=== PATIENT | male | born 1945 | race African-American/Black ===

== ENCOUNTER 2017-04-26 06:53 | Day surgery (SDC) | payer MEDICARE ==
[~2017-04-26] VITALS: Ht 188 cm; Wt 111.1 kg
--- NOTE | ~2017-04-26 | OP ---
PATIENT NAME: Anna MORRIS MEDICAL RECORD: [id number] :49 LOCATION:[facility] ADMISSION DATE: SURGEON: VIRY POOLE MD DATE OF OPERATION: 04/26/2017 REFERRING PHYSICIAN: Nelida Huang MD, of [facility] [place] SOCIAL MEDIA SENIOR ASSOCIATE: Cuco England MD PREOPERATIVE DIAGNOSES: End-stage renal disease, dependence on hemodialysis, diabetes, hypertension, and thrombosed left forearm radiocephalic arteriovenous fistula. POSTOPERATIVE DIAGNOSES: End-stage renal disease, dependence on hemodialysis, diabetes, hypertension, and thrombosed left forearm radiocephalic arteriovenous fistula. OPERATIONS PERFORMED: Intraoperative ultrasound vein mapping followed by implantation of a left rainbow configuration brachial artery to proximal basilic vein arteriovenous graft utilizing a standard wall thickness 6-mm diameter Delmont Propaten PTFE graft. Insertion of a tunneled HemoSplit dialysis catheter via the left internal jugular vein utilizing ultrasound guidance as well as fluoroscopy. SURGEON: Viry Poole MD ANESTHESIA: General with LMA per ELECTROTYPE MOLDER PREOPERATIVE NOTE: Mr. Morris is a very nice 72-year-old -[place] male from [facility] who has end-stage renal disease, due likely to his diabetes and hypertension. He has had difficulties with access since initiating hemodialysis in June of 2015. He has had a fistula in the right arm fail and recently had a left radiocephalic fistula, which was slow to mature but did eventually mature and become satisfactory access. I saw the patient at [facility] last December and dilated a mid fistula stenosis and removed a right internal jugular tunneled dialysis catheter at that time. The graft was used to dialyze him successfully, most recently on Saturday of this week. When he presented for dialysis yesterday, on , the fistula was thrombosed. He was brought to the hospital today as an outpatient for a tunneled dialysis catheter, and if possible, a declot salvage of his fistula or implantation of the graft. DESCRIPTION OF PROCEDURE: With the patient under general anesthesia with LMA, he was prepped and draped in sterile manner. Topical nitroglycerin was applied to the skin of the arm and the forearm. A Liu drain was used as a proximal venous tourniquet. I examined him with ultrasound and found that the radiocephalic fistula of course was indeed thrombosed. On ultrasound, it appeared to be essentially obliterated in the upper third of the forearm, near the antecubital space. I also saw that there was very limited runoff other than via the brachial veins in the forearm. I thought it probably is wiser to go ahead and provide an entirely new access than to try further to restore flow in this fistula that has been problematic already. I then elected to implant a PTFE graft. The cephalic vein in the upper arm was poor or very small. The brachial artery looked good and the basilic vein also was small. The axillary vein and proximal basilic vein were of good caliber. I made a longitudinal incision in the upper arm and exposed the basilic vein just proximal to the OPERATIVE REPORT [id number] Anna MORRIS axilla. I made another incision across the antecubital space and exposed the brachial artery just above the level of the antecubital space. The vessels were controlled with Silastic loops and treated with topical papaverine. I chose a 6-mm diameter standard wall thickness Delmont Propaten PTFE graft and beveled one end and then occluded the vein, opened it for a distance of about 10 mm, and flushed the vein proximally and distally with heparinized saline. I then anastomosed the end of graft to side of vein with continuous running 7-0 Prolene. The suture line was treated with Evicel sealant, and after satisfactory time had elapsed, the graft was flushed with heparinized saline and the suture line was found to be watertight. The occluding loops on the vein were released and the graft clamped and the suture line was hemostatic. I then placed the graft in immediately subcutaneous or very shallow subcutaneous tunnel, which arched in a rainbow configuration and then came back to the brachial artery wound, where it was shortened and beveled and anastomosed end-to-side to the artery with running 7-0 Prolene after the artery was opened and flushed proximally and distally with heparinized saline. That suture line too was treated with Evicel prior to opening the fistula and release of occluding clamps and loops on the vessels. The arterial suture line was satisfactory and hemostatic. Excellent flow developed immediately within the new AV graft and there was good pulsatile continuous flow in the brachial artery and in the brachial artery proximal and also distal to the arterial anastomosis. Doppler examination of the radial artery closer to the wrist demonstrated pulsatile flow signal with and without occlusion of the new AV graft. There was no evidence of distal ischemia and I felt that this would be a satisfactory access. The patient's wounds were irrigated with Ancef-gentamicin solution and infiltrated and irrigated with 0.25% Marcaine with epinephrine. The wounds were closed with interrupted inverted 3-0 Vicryl and then running intracuticular 4-0 Monocryl and Dermabond glue. They were dressed with Maxorb Ag, Tegaderm, and Cavilon skin prep. The patient's neck was then prepped and draped in sterile manner. I examined the right side first with ultrasound and found that the internal jugular vein was gone from prior catheter usage. I noted that the left internal jugular vein was of large caliber. I made a small incision at the base of the neck on the left, and through that, using ultrasound guidance, I placed a needle and guidewire into the internal jugular vein with appropriate documentation. The wire was advanced into the right atrium under fluoro, and after that, dilators were passed and lastly a dilator peel-away sheath. I chose first a 190 but switched to a 23-cm HemoSplit catheter and that was inserted through a separate skin incision beneath the clavicle and pulled through a subcutaneous tunnel up to the cervical wound. It was inserted and manipulated with an Amplatz guidewire actually down into the superior vena cava and the right atrium. Eventually, a very good geometric configuration was achieved. Both lumens functioned well. They elgin blood easily and were flushed then easily with saline. They were then heparin locked, clamped, and capped. The catheter was sutured to the skin near the entry site with 2-0 Prolene. The cervical incision was closed with interrupted inverted 3-0 Vicryl and Dermabond glue; and dressed with Maxorb Ag and Tegaderm with Cavilon skin prep. The catheter entry site also was snugged up with a single intracuticular 3-0 Vicryl suture. That incision was also sealed around the catheter with glue. A chlorhexidine patch was applied over that and then a standard central venous catheter. Dressing was applied. The patient at that point was awakened and taken to the recovery room in stable condition. Blood loss throughout the operation was less than 10 cc. None was replaced intraoperatively. All sponges, instruments, and needles were accounted for. No drain was used. No surgical specimen was submitted for OPERATIVE REPORT [id number] ALEXANDRA,E.L. histopathology. PLAN: The patient can, I think, go home this afternoon and resume his usual dialysis schedule. Continue his home medications as he had been on preop. I will make an appointment for him to come back to see me in my office in approximately 2 weeks and is very likely, after that office visit, that we can start accessing the new AV graft. TRANSINT:[id number] Voice Confirmation ID: [id number] DOCUMENT ID: [id number] VIRY POOLE MD CC: CUCO ENGLAND MD and NELIDA HUANG III MD [id number] DICTATION DATE: 04/26/17 131 HEALTH CARE ATTORNEY: 04/26/17 1705 [facility] 04/26/17 [facility] [address] [place] [address]
[2017-04-26 08:06] LABS: BASOPHILS 0.1 % (0-2); HEMATOCRIT 36.6 % (42.0-54.0); HEMOGLOBIN 12.2 g/dL (13.5-17.5); IMMATURE GRANULOCYTES 0.3 % (0-5); LYMPHOCYTES 11.3 % (15-50); MCH 30.6 pg (26.0-34.0); MCHC 33.3 g/dL (31.0-37.0); MCV 91.7 fL (80.0-100.0); MEAN PLATELET VOLUME 9.4 fL (7.4-10.4); MONOCYTES 8.6 % (2-11); NEUTROPHILS 77.7 % (40-80); PLATELET COUNT 162 10x3/uL (130-400); RBC 3.99 10x6/uL (4.20-6.10); RDW 14.2 % (11.5-14.5); WBC 7.1 10x3/uL (4.8-10.8)
[2017-04-26 08:14] LABS: INR 1.09 (0.85-1.17)
[2017-04-26 08:18] LABS: ANION GAP 20.8 mmol/L (8-16); CALCIUM 8.7 mg/dL (8.5-10.1); CARBON DIOXIDE 22.3 mmol/L (21.0-32.0); CREATININE - SERUM 16.5 mg/dL (0.6-1.3); POTASSIUM - SERUM 5.1 mmol/L (3.5-5.1)
[2017-04-26 08:19] LABS: APTT 32.3 SECONDS (22.8-39.4)
[2017-04-26] MEDS ORDERED: PRAVACHOL20 MG PO (08:32)
[2017-04-26] MEDS ORDERED: LEVOXYL75 MCG PO (08:33)
[2017-04-26] MEDS ORDERED: PROTONIX40 MG PO (08:33)
[2017-04-26] MEDS ORDERED: RENVELA800 MG PO (08:34)
[2017-04-26] MEDS ORDERED: [UNRECOGNIZED DRUG - OTHER] (08:34)
[2017-04-26] MEDS ORDERED: PHOSLO667 MG PO (08:35)
[2017-04-26 08:44] VITALS: Ht 188 cm; Wt 111.1 kg
[2017-04-26] MEDS ORDERED: ULTRAM50 MG PO (12:49)
--- NOTE | 2017-04-26 15:31 | NUR ---
1500--IV DC'D, PT DRESSING AT THIS TIME. DO WONG 0185--DISCHARGE INSTRUCTIONS GIVEN, PT VERBALIZES UNDERSTANDING. DO WONG
--- NOTE | 2017-04-26 16:20 | NUR ---
1600--REPORT OF POST OP CXR GIVEN TO RITO AGUSTIN TO DISCHARGE. PT OFF UNIT VIA WC. DO WONG
== END 2017-04-26 16:00 | disposition home or self-care (01) ==
LOC: D.OPS 06:53
PROVIDERS: Surgery
DX: N18.6 End stage renal disease (principal); F17.200 Nicotine dependence, unspecified, uncomplicated; E03.9 Hypothyroidism, unspecified; Z01.812 Encounter for preprocedural laboratory examination; E11.22 Type 2 diabetes mellitus with diabetic chronic kidney disease; I10 Essential (primary) hypertension; Z99.2 Dependence on renal dialysis

== ENCOUNTER 2018-03-28 06:24 | Day surgery (SDC) | payer MEDICARE ==
[~2018-03-28] VITALS: Ht 188 cm; Wt 111.1 kg
--- NOTE | ~2018-03-28 | OP ---
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 OPERATION PERFORMED: Fistulogram and open thrombectomy, left arm AV graft. SURGEON: Viry Poole MD ANESTHESIA: General with LMA per EQUIPMENT DRIVER. PREOPERATIVE NOTE: Mr. Morris is a 72-year-old gentleman from [facility]. He is on chronic hemodialysis. His raw shellfish preparer is Dr. Avery in [place]. Mr. Morris has a left upper extremity brachial axillary PTFE AV graft, which is thrombosed. He has a history of recurring thrombosis of this graft and despite being on Eliquis and aspirin. When he had his last declot and fistulogram at [facility], Dr. Fox noted that there were numerous overlapping stents in the axilla and axillary outflow of the graft and that the graft was "worn out" and he suggested that Mr. Morris would need a new access should his graft continue to thrombose. His graft clotted about 2 weeks after that and Mr. Morris was back to [facility] where I believe I inserted a TDC in the left internal jugular vein. Subsequently, he was scheduled for outpatient surgery with my thought being to try to save the left upper extremity for access with a new jump graft from his old arterial anastomosis to the stented portion of his axillary vein. Under general anesthetic in supine position, the patient was prepped and draped in sterile manner. I accessed the graft in the arm just above the antecubital space with ultrasound guidance and micropuncture technique. I placed a 6-Cook Islander introducer and all the time, had great difficulty passing needles and guidewires into the graft admitting very very firm. I was able to advance a Glidewire within a straight glide catheter only to the most distal stent. I tried an Amplatz wire as well as a Roadrunner wire and was equally unsuccessful. 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 I did make an incision near the arterial anastomosis and exposed the graft and opened it and tried to pass a Trung catheter in order to remove some of this organized thrombus, but was unable to pass the Trung more than a few centimeters, not exceeding the length of the 6-Cook Islander port divide removed. The wound was then closed with interrupted 3-0 Vicryl and running intracuticular Monocryl and Dermabond glue. It was dressed with Maxorb Ag, Tegaderm, and Cavilon skin prep. PLAN: The patient will have a right upper extremity venous Mapping Ultrasound done today and will go home and I will have him come back to the hospital when OPERATIVE REPORT [id number] Jena MORRIS he is able to give informed consent and we are prepared for implantation of a HeRO graft in the left upper extremity. Of course, he could have a right upper extremity AV graft of his venogram in the case of no venous obstruction. In the case of a HeRo graft, I plan to remove the present left internal jugular TDC and use that tract for the HeRO outflow. I have to use an immediate use PTFE graft such as the Acuseal so that he will not require a bridging catheter after that. Blood loss during the procedure today was insignificant and unreplaced and all sponges, instruments, and needles were accounted for. No drain was used and no surgical specimen was submitted for histopathology. TRANSINT:[id number] Voice Confirmation ID: [id number] DOCUMENT ID: [id number] VIRY POOLE MD at 1054 CC: FRANCIS ENGLAND and MIREYA FOX MD [id number] DICTATION DATE: 03/28/18 1045 COMMERCIAL REAL ESTATE MANAGER: 03/28/18 1102 [facility] 03/28/18 [facility] [address] [place] [id number]
[~2018-03-28 06:24] MED LIST: LEVOXYL75 MCG PO; PHOSLO667 MG PO; PRAVACHOL20 MG PO; PROTONIX40 MG PO; RENVELA800 MG PO; ULTRAM50 MG PO; [UNRECOGNIZED DRUG - OTHER]
[2018-03-28 06:59] LABS: BASOPHILS 0.6 % (0-2); EOSINOPHILS 1.3 % (0-7); HEMATOCRIT 38.6 % (42.0-54.0); HEMOGLOBIN 13.1 g/dL (13.5-17.5); IMMATURE GRANULOCYTES 0.2 % (0-5); LYMPHOCYTES 19.2 % (15-50); MCH 31.5 pg (26.0-34.0); MCHC 33.9 g/dL (31.0-37.0); MCV 92.8 fL (80.0-100.0); MEAN PLATELET VOLUME 9.6 fL (7.4-10.4); MONOCYTES 14.5 % (2-11); NEUTROPHILS 64.2 % (40-80); PLATELET COUNT 191 10x3/uL (130-400); RBC 4.16 10x6/uL (4.20-6.10); RDW 14.3 % (11.5-14.5); WBC 5.4 10x3/uL (4.8-10.8)
[2018-03-28 07:24] LABS: ANION GAP 16.4 mmol/L (8-16); CARBON DIOXIDE 20.5 mmol/L (21.0-32.0); CREATININE - SERUM 5.9 mg/dL (0.6-1.3); POTASSIUM - SERUM 3.9 mmol/L (3.5-5.1)
[2018-03-28 07:36] LABS: APTT 30.8 SECONDS (22.8-39.4); INR 1.13 (0.85-1.17); PROTIME 14.1 SECONDS (11.6-15.0)
[2018-03-28] MEDS ORDERED: ELIQUIS5 MG PO (08:03)
[2018-03-28 08:05] VITALS: Ht 188 cm; Wt 111.1 kg
== END 2018-03-28 13:30 | disposition home or self-care (01) ==
LOC: D.OPS 06:24
PROVIDERS: Surgery
DX: T82.868A Thrombosis due to vascular prosthetic devices, implants and grafts, initial encounter (principal); E11.22 Type 2 diabetes mellitus with diabetic chronic kidney disease; I12.0 Hypertensive chronic kidney disease with stage 5 chronic kidney disease or end stage renal disease; N18.6 End stage renal disease; Z99.2 Dependence on renal dialysis; D68.59 Other primary thrombophilia; Z01.812 Encounter for preprocedural laboratory examination

== ENCOUNTER 2018-06-20 07:27 | Inpatient (IN) | payer MEDICARE ==
[~2018-06-20] VITALS: Ht 167.6 cm; Wt 104.3 kg
--- NOTE | ~2018-06-20 | MORECARE ---
CASE MANAGEMENT DISCHARGE SUMMARY PATIENT: Jena MORRIS UNIT: [id number] ADM DATE: 06/20/18 AGE: 73 : 47 SEX: M ROOM/BED: D.2101 AUTHOR: ALYSE POWERS PHYSICIAN: REFERRING PHYSICIAN: FRACNIS ENGLAND MD DATE OF SERVICE: 06/23/18 Discharge Plan Patient Name: Jena MORRIS [facility] [facility] 1945 Planned Disposition: Home Anticipated Discharge Date: 06/21/18 Discharge Date: 06/21/2018 Expected LOS: 1 Initial Reviewer: [email or web address] Initial Review Date: 06/23/2018 Generated: 06/23/18 9:26 am Patient Name: Jena MORRIS Page [id number] at 0826 All edits/amendments must be made on the electronic document DICTATION DATE: 06/23/18825 DELIVERY ASSOCIATE: KEYLA 06/23/18825 RPT#: [id number] DC DATE:06/21/18 STATUS: DIS IN [facility] [address] [place] [address] END OF REPORT
--- NOTE | ~2018-06-20 | OP ---
PATIENT NAME: Jena ORNELAS MEDICAL RECORD: [id number] :49 LOCATION:D. 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 OPERATIONS: Removal of the left internal jugular tunneled dialysis catheter with performance of a superior vena cavogram and balloon angioplasty of a thoracic central vein stenosis at the junction of the brachiocephalic vein and superior vena cava. Implantation of HeRO AV graft with initiation from the brachial artery at mid humeral level to the right atrium via the left internal jugular vein. The PTFE portion of the graft was Acuseal. PREOPERATIVE NOTE: Mr. 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 He is to have today that tunneled dialysis catheter removed and a HeRO AV graft implanted in the left upper extremity with the outflow device placed via the left internal jugular vein into the right atrium. DESCRIPTION OF PROCEDURE: Under general endotracheal anesthesia, the patient was prepped and draped in a sterile manner. The TDC on the left was dissected from the surrounding tissues and removed over a guidewire and an introducer port was inserted and a superior vena cavogram performed, which confirmed a severe stenosis of the left brachiocephalic vein at the junction with the superior vena cava. This was subsequently dilated with an 8-mm diameter angioplasty balloon and followup angiography revealed the stenosis to be fairly elastic. I was then able to advance a wire and catheter and then do an exchange leaving an Amplatz wire in place from the left internal jugular vein into the inferior vena cava. I passed an outflow device then and positioned its tip in the right atrium. The device was aspirated and then flushed with heparinized saline and clamped. I made an infraclavicular incision and pulled the outflow device through a subcutaneous tunnel to that incision. Under fluoroscopy, we were careful to leave the tip of the catheter in the right atrium undisplaced. I then made an incision on the medial aspect of the arm and exposed the mid humeral level brachial artery and controlled with Silastic loops. It was noted to be moderately calcified, though seemed to be of good caliber with a substantial lumen. The artery was occluded. It was opened and flushed proximally and distally with heparinized saline after which I chose an Acuseal 6-mm PTFE graft and bevelled it and anastomosed it end-to-side to the brachial artery with running 6-0 Prolene. The anastomosis was sealed with BioGlue. The graft was then placed in an U-shaped tunnel using one counter incision and it was brought back up to the infraclavicular incision in the deltopectoral groove. It was shortened and then connected to the HeRO with the special adaptor connector. Again, fluoroscopy confirmed good position of the outflow device in the right atrium. With removal of clamps, excellent flow was established within the new HeRO graft. The wounds were irrigated with saline, infiltrated with 0.25% Marcaine and closed with interrupted inverted 3-0 Vicryl. The connector at the outflow device PTFE junction was sutured to the pectoral fascia with two 2-0 OPERATIVE REPORT [id number] Jena ORNELAS Prolene sutures. Skin was closed with running intracuticular Monocryl and Dermabond glue. Dressings of Maxorb Ag, Tegaderm, and Cavilon skin prep were applied. The tip of the TDC was sent to the laboratory for culture. No other specimens were submitted for histopathology. This man came to the hospital today. I am going to keep him and admit him to inpatient status. I believe that we should wait 24-48 hours before accessing the Acuseal graft and then we should be taking care to see that Acuseal protocol was followed both here in the hospital and after he is discharged. Ideally, I would like to see that he is dialyzed twice, perhaps both on Saturday and Saturday and then be discharged on Saturday or perhaps on Saturday dialysis before going home that same day. He will continue his same medications and diet and dialysis schedule after that when he gets home. I will follow up with him in my office. Blood loss during the operation was 100 cc, none replaced. All sponges, instruments, and needles were accounted for. No drain was used. The surgical specimen consisted only of the tip of the TDC, which was sent for culture. TRANSINT:[id number] Voice Confirmation ID: [id number] DOCUMENT ID: [id number] VIRY POOLE MD at 1657 CC: [id number] DICTATION DATE: 07/08/181106 PIPEFITTER HELPER: 07/08/18 1134 DIS IN 06/21/18 [facility] [address] [id number]
[~2018-06-20 07:27] MED LIST changes: +ELIQUIS5 MG PO
[2018-06-20 08:06] LABS: BASOPHILS 0.3 % (0-2); EOSINOPHILS 1.1 % (0-7); HEMATOCRIT 38.2 % (42.0-54.0); HEMOGLOBIN 12.8 g/dL (13.5-17.5); IMMATURE GRANULOCYTES 0.2 % (0-5); LYMPHOCYTES 15.1 % (15-50); MCH 31.2 pg (26.0-34.0); MCHC 33.5 g/dL (31.0-37.0); MCV 93.2 fL (80.0-100.0); MEAN PLATELET VOLUME 9.8 fL (7.4-10.4); MONOCYTES 10.1 % (2-11); NEUTROPHILS 73.2 % (40-80); PLATELET COUNT 175 10x3/uL (130-400); WBC 6.5 10x3/uL (4.8-10.8)
[2018-06-20 08:06] LABS: ANION GAP 14.3 mmol/L (8-16); CALCIUM 7.8 mg/dL (8.5-10.1); CARBON DIOXIDE 24.7 mmol/L (21.0-32.0); CREATININE - SERUM 5.1 mg/dL (0.6-1.3)
[2018-06-20 08:45] LABS: INR 1.19 (0.85-1.17); PROTIME 14.7 SECONDS (11.6-15.0)
[2018-06-20 09:22] VITALS: BMI 39.6
[2018-06-20 21:22] VITALS: BP 92/47
[2018-06-21 02:11] VITALS: BP 110/56
[2018-06-21 04:16] VITALS: BP 92/47; BMI 37.2
[2018-06-21 06:40] VITALS: BP 94/42
[2018-06-21 08:42] VITALS: BP 104/51
[2018-06-21 12:35] VITALS: Ht 167.6 cm; Wt 104.3 kg
[2018-06-21 13:12] VITALS: BP 98/51
== END 2018-06-21 18:27 | disposition home or self-care (01) | DRG 252 ==
LOC: D.OPS 07:27 → D.M2 18:32 → D.OPS 18:33 → D.M2 18:37
PROVIDERS: Surgery
PROC: 03150JV Bypass Right Axillary Artery to Superior Vena Cava with Synthetic Substitute, Open Approach (ICD-10-PCS; 2018-06-20)
PROC: 05PY03Z Removal of Infusion Device from Upper Vein, Open Approach (ICD-10-PCS; principal; 2018-06-20 10:15)
PROC: 057A3ZZ Dilation of Left Brachial Vein, Percutaneous Approach (ICD-10-PCS; 2018-06-20 10:15)
DX: T82.858A Stenosis of other vascular prosthetic devices, implants and grafts, initial encounter (principal); N18.6 End stage renal disease; I12.0 Hypertensive chronic kidney disease with stage 5 chronic kidney disease or end stage renal disease; Y83.8 Other surgical procedures as the cause of abnormal reaction of the patient, or of later complication, without mention of misadventure at the time of the procedure; E11.22 Type 2 diabetes mellitus with diabetic chronic kidney disease; Z99.2 Dependence on renal dialysis; I70.208 Unspecified atherosclerosis of native arteries of extremities, other extremity